=== PATIENT | female | born 1960 | race Caucasian/White ===

== ENCOUNTER 2017-03-13 07:43 | Day surgery (SDC) | payer OTHER ==
[~2017-03-13] VITALS: Ht 162.6 cm; Wt 82.5 kg
[~2017-03-13 07:43] MED LIST: ALIVE WOMEN'S1 EAC1 PO; CENTRUM SILVER1 EAC5 PO; CITRACAL + BON1 EACH PO; CITRUCEL POWDE454 GM PO; VITAMIN C1000 MG PO; ZYRTEC-D TABLE1 EACH PO
--- NOTE | 2017-03-13 09:38 | NUR ---
03[facility]13/17 0938 [facility].
--- NOTE | 2017-03-14 14:06 | OR ---
[facility] [address], [place] [address] Signed DATE OF SERVICE: 03/13/2017 PREOPERATIVE DIAGNOSES: Internal hemorrhoids. Mother with a history of colon cancer. Sister with a history of colonic polyps. Son developed Crohn disease at age 25. POSTOPERATIVE DIAGNOSES A 7-mm polyp opposite ileocecal valve. Internal hemorrhoids. PROCEDURES PERFORMED: Colonoscopy with snare polypectomy and clip. ESTIMATED BLOOD LOSS: Minimal. INDICATIONS: Gorge is a 56-year-old female, who came in 2005 and 2011. She has had some internal hemorrhoids, but otherwise negative colonoscopies. Her mother developed colon cancer in her mid 50s and of colon cancer by age 60. In addition, her sister has had colonic polyps removed, and at age 25, her son was diagnosed with Crohn's disease. Gorge returns now for followup colonoscopy. She has no lower GI complaints. I met with Dana in the office. I gave her a pamphlet on endoscopy. We reviewed the nature of the endoscopy along with its risks including but not limited to gas, bloating, crampy abdominal pain, bleeding, perforation requiring surgery, and missed diagnosis. We also discussed the need for IV conscious sedation. She had expressed understanding and wished to proceed. PROCEDURE IN DETAIL: Dana was taken into endoscopy suite and placed in the left lateral decubitus position. She was given 4 mg of Versed and 100 mcg of fentanyl for the procedure. A digital rectal exam was performed and this was unremarkable. The adult colonoscope was introduced and advanced around into the cecum under direct visualization of camera without difficulty. Her prep was good. The scope was then slowly withdrawn. Opposite the ileocecal valve was a bilobed sessile polyp. We utilized our snare to completely surround the area and divided from the underlying wall of the colon. It was then suctioned through t h e scope and captured in the canister. There was just a little bleeding from the base of the polypectomy site, which is common. We went ahead and applied a clip and that gave good hemostasis. After this, the scope was slowly withdrawn. The rest of the colon and rectum were unremarkable. The scope was then retroflexed in the rectum and she has some small internal hemorrhoid columns. After this, the gas was suctioned out. The colonoscope removed. Dana tolerated procedure quite well. Electronically Signed By: ROLANDA GALLARDO MD 03/14/17 1406 PATIENT NAME: GORGE RICH OPERATIVE REPORT DATE OF : 58 PHYSICIAN: ROLANDA GALLARDO MD REPORT #: [id number] REPORT IS CONFIDENTIAL AND NOT TO BE RELEASED WITHOUT AUTHORIZATION [facility] [address] [place] [address] Signed RECOMMENDATIONS: I will see Dana back in my office in 7-14 days to review her results. MD CECILIA Gonzales/Link /[id number] cc: Dr. Lonnie Regan MD Electronically Signed By: ROLANDA GALLARDO MD 03/14/17 1406 PATIENT NAME: GORGE RICH OPERATIVE REPORT DATE OF : 58 PHYSICIAN: ROLANDA GALLARDO MD REPORT #: [id number] REPORT IS CONFIDENTIAL AND NOT TO BE RELEASED WITHOUT AUTHORIZATION
== END 2017-03-13 09:57 | disposition home or self-care (01) ==
LOC: OPS 07:43 → DS 07:43 → OPS 09:00 → DS 09:00 → OPS 09:57
PROVIDERS: Colon & Rectal Surgery
PROC: 0DBK8ZX Excision of Ascending Colon, Via Natural or Artificial Opening Endoscopic, Diagnostic (ICD-10-PCS; principal; 2017-03-13 09:00)
DX: K64.8 Other hemorrhoids (principal); Z80.0 Family history of malignant neoplasm of digestive organs; Z90.89 Acquired absence of other organs; Z98.818 Other dental procedure status; Z90.710 Acquired absence of both cervix and uterus; Z98.890 Other specified postprocedural states
CPT/HCPCS: 99152; 99153; J2250; J3010; J7120

== ENCOUNTER 2022-11-14 06:20 | Day surgery (SDC) | payer OTHER ==
[~2022-11-14] VITALS: Ht 162.6 cm; Wt 68.5 kg
--- NOTE | 2022-11-14 08:08 | NUR ---
11/14/22 0808 Jhoana Short 0803-PATIENT ARRIVED TO PACU ON 2L NC RR EVEN. PATIENT LAYING LEFT LATERAL REACTIVE TO VERBAL STIMULI DROWSY DENIES PAIN OR NAUSEA. ABDOMEN SOFT. ORIENTED TO PACU. IVF INFUSING. PATIENT DOZES BACK TO SLEEP.
--- NOTE | 2022-11-14 09:35 | OR ---
[facility] [address] [place], [place] [address] Signed DATE OF OPERATION: 11/14/2022 SURGEON: Rolanda Gallardo MD PREOPERATIVE DIAGNOSES: 1. Mother with colon cancer age 56. 2. Maternal aunt with possible colon cancer in her 70s. 3. Sister with colonic polyps. 4. Son with Crohn disease at age 25. 5. Internal hemorrhoids. POSTOPERATIVE DIAGNOSES: 1. Minimal internal hemorrhoids. 2. 4 mm polyp at 75 cm in left colon. 3. 4 mm polyp at 30 cm in sigmoid colon. PROCEDURE: Colonoscopy with hot biopsy. ESTIMATED BLOOD LOSS: None. INDICATIONS: Gorge is a 61-year-old female, asked to see me for her 4th colonoscopy. She has a family history as listed above. She has had internal hemorrhoids on her previous colonoscopies. They are quite small. Currently, she has no lower GI complaints. In the office, I had given her a pamphlet on colonoscopy. She understands the test quite well. There is risk including, but not limited to gas bloating, crampy abdominal pain, bleeding, perforation requiring surgery, and missed diagnosis. We also reviewed the written instructions for a bowel prep line by line. She knows her bowel prep at this point quite well. She also does very well with Versed and fentanyl. They live over an hour [place] a half away beyond [place], [place]. Consequently her is here in town with her. She had expressed understanding and wished to proceed. PROCEDURE NOTE: Gorge was taken into our endoscopy suite and placed in the left lateral decubitus position. She was given 5 mg of Versed with 100 mcg of fentanyl to cover the case. A digital rectal exam was performed and this was unremarkable. She has no external hemorrhoids. There are no masses noted. She has good sphincter tone. The adult colonoscope was introduced and advanced all around into the cecum under direct Electronically Signed By: ROLANDA GALLARDO MD 11/14/22 0935 PATIENT NAME: GORGE RICH OPERATIVE REPORT DATE OF : 58 REPORT #: [id number] PHYSICIAN: ROLANDA GALLARDO MD PCP: BHAVANA FARIAS MD REPORT IS CONFIDENTIAL AND NOT TO BE RELEASED WITHOUT AUTHORIZATION [facility] [address] [place] [id number] Signed visualization of the camera without difficulty. As always, her prep was quite good. We could easily see her appendiceal orifice and the ileocecal valve. The scope was then slowly withdrawn. She had two tiny polyps removed with the help of hot biopsy forceps. There was no diverticulosis. The rectum was unremarkable. Upon retroflexion of the scope, she has minimal if any internal hemorrhoid tissue. After this, the gas was suctioned out and the colonoscope removed. Gorge tolerated the procedure quite well. RECOMMENDATIONS: Gorge is welcome to return to my office in 7 to 14 days to review the results. Otherwise, we can give her a call since they live at least 90 minutes away. It looks like she is going to stay on the five year plan. Rolanda Gallardo MD ALB/MODL /[id number] cc: MD Rolanda Love MD Copies: BHAVANA FARIAS MD, ANDREW L MD ~ Electronically Signed By: ROLANDA GALLARDO MD 11/14/22 0935 PATIENT NAME: GORGE RICH OPERATIVE REPORT DATE OF : 58 REPORT #: [id number] PHYSICIAN: ROLANDA GALLARDO MD PCP: BHAVANA FARIAS MD REPORT IS CONFIDENTIAL AND NOT TO BE RELEASED WITHOUT AUTHORIZATION
--- NOTE | 2022-11-14 14:22 | NUR ---
PT ALERT, ORIENTED AND SUPPORTED BY HER NELLIE. PT IS PLEASANT, SHARED THAT [facility] DUE TO THE PREVIOUS VERY POSITIVE EXPERIENCE. NELLIE WILL REMAIN FOR DC, PT REQUESTED PRAYER, GAVE ENCOURAGEMENT AND BLESSING. WILL FOLLOW
--- NOTE | 2022-11-15 12:48 | PATH ---
[facility] [address] [facility] [place], [place] [address] Signed SPECIMEN(S): A COLON POLYP AT 30 CM SPECIMEN(S): B DESCENDING COLON POLYP AT 75 CM SPECIMEN SOURCE: A. COLON POLYP AT 30 CM B. DESCENDING COLON POLYP AT 75 CM CLINICAL HISTORY: Surveillance colonoscopy #4; family history of colon cancer and polyps. Polyps. Minimal hemorrhoids. FINAL PATHOLOGIC DIAGNOSIS: A. Colon polyp at 30 cm: - Hyperplastic polyp (1 fragment). B. Descending colon polyp at 75 cm: - Hyperplastic polyp (1 fragment). JVR:slc:[id number] MICROSCOPIC EXAMINATION: Histologic sections of all submitted blocks are examined by light microscopy. These findings, together with the gross examination, support the pathologic diagnosis. GROSS DESCRIPTION: A. The specimen, labeled and designated "Belinda, colon polyp at 30 cm," is received in formalin and consists of a single fragment of pink-hooks soft tissue measuring 0.3 cm in greatest dimension. The tissue is marked with eosin and entirely submitted in (A1). B. The specimen, labeled and designated "Trevino, descending colon polyp," is received in formalin and consists of a single fragment of pink-hooks soft tissue measuring 0.3 cm in greatest dimension. The tissue is entirely submitted in (B1). KORTNEY (under the direct supervision of a pathologist) The Gross Description was prepared using a voice recognition system. The report was reviewed for accuracy; however, sound-alike word errors, addition and/or deletions may occur. If there is any question about this report, please contact Client Services. PERFORMING LABORATORY: The technical component was performed by [facility], [address] [place] [id number] (CLIA# [id number]). Professional interpretation was PATIENT NAME: GORGE TREVINO PATHOLOGY DATE OF : 58 REPORT #: [id number] PHYSICIAN: [facility] PCP: BHAVANA FARIAS MD REPORT IS CONFIDENTIAL AND NOT TO BE RELEASED WITHOUT AUTHORIZATION [address] [address] Signed performed by [facility] [address] [address] (CLIA#: [id number]). Diagnostician: Erich Campos MD Pathologist Electronically Signed 11/15/2022 Copies: ~ PATIENT NAME: GORGE TREVINO PATHOLOGY DATE OF : 58 REPORT #: [id number] PHYSICIAN: [facility] PCP: BHAVANA FARIAS MD REPORT IS CONFIDENTIAL AND NOT TO BE RELEASED WITHOUT AUTHORIZATION
== END 2022-11-14 09:00 | disposition home or self-care (01) ==
LOC: DS 06:20 → OPS 06:20 → DS 07:30 → OPS 09:00
PROVIDERS: ATTEND Colon & Rectal Surgery
PROC: 0DBN8ZZ Excision of Sigmoid Colon, Via Natural or Artificial Opening Endoscopic (ICD-10-PCS; 2022-11-14)
PROC: 0DBM8ZZ Excision of Descending Colon, Via Natural or Artificial Opening Endoscopic (ICD-10-PCS; principal; 2022-11-14 07:30)
DX: Z12.11 Encounter for screening for malignant neoplasm of colon (principal); Z80.0 Family history of malignant neoplasm of digestive organs; K64.0 First degree hemorrhoids; J04.0 Acute laryngitis; Z83.71 Family history of colonic polyps; Z83.79 Family history of other diseases of the digestive system; K63.5 Polyp of colon
CPT/HCPCS: 99153; G0500; J2250; J3010; J7121